=== PATIENT | male | born 1940 | race Caucasian/White ===

== ENCOUNTER 2018-08-08 07:35 | Emergency (ER) | payer OTHER, MEDICARE ==
[2018-08-08] MEDS ORDERED: HYTRIN1 MG PO (07:59)
[2018-08-08] MEDS ORDERED: DEPAKOTE125 MG PO (08:00)
[2018-08-08 08:21] LABS: BASOPHILS 0.6 % (0-2); EOSINOPHILS 3.3 % (0-7); HEMATOCRIT 42.4 % (42.0-54.0); HEMOGLOBIN 14.8 g/dL (13.5-17.5); IMMATURE GRANULOCYTES 0.6 % (0-5); LYMPHOCYTES 15.3 % (15-50); MCH 31.8 pg (26.0-34.0); MCHC 34.9 g/dL (31.0-37.0); MEAN PLATELET VOLUME 10.4 fL (7.4-10.4); MONOCYTES 5.9 % (2-11); NEUTROPHILS 74.3 % (40-80); PLATELET COUNT 197 10x3/uL (130-400); RBC 4.66 10x6/uL (4.20-6.10); RDW 13.5 % (11.5-14.5); WBC 5.4 10x3/uL (4.8-10.8)
[2018-08-08 08:23] LABS: APTT 24.8 SECONDS (22.8-39.4); INR 1.07 (0.85-1.17); PROTIME 13.4 SECONDS (11.6-15.0)
[2018-08-08 08:24] LABS: ALBUMIN 3.6 g/dL (3.4-5.0); ALKALINE PHOSPHATASE 91 U/L (46-116); ALT (SGPT) 27 U/L (10-68); BILIRUBIN - TOTAL 0.58 mg/dL (0.2-1.3); CALC OSMOLALITY 289 mosm/kg (275-300); CALCIUM 8.7 mg/dL (8.5-10.1); CHLORIDE - SERUM 107 mmol/L (98-107); GLUCOSE 148 mg/dL (74-106); POTASSIUM - SERUM 5.1 mmol/L (3.5-5.1); PROTEIN - SERUM 6.5 g/dL (6.4-8.2); SODIUM 142 mmol/L (136-145); UREA NITROGEN 23 mg/dL (7-18); eGFR NON AFRICAN AMERICAN 77 mL/min (90-120)
[2018-08-08 08:32] LABS: LIPASE 198 U/L (73-393); PRO BNP 94 pg/mL (0-450); TROPONIN-I < 0.017 ng/mL (0.000-0.060)
[2018-08-08 09:01] LABS: APPEARANCE CLEAR (CLEAR); BACTERIA FEW /hpf (NONE SEEN); BILIRUBIN NEGATIVE (NEGATIVE); COLOR YELLOW (YELLOW); EPITHELIAL CELLS OCC /hpf (0-5); GLUCOSE NEGATIVE (NEGATIVE); GRANULAR CAST RARE /lpf (NONE SEEN); KETONE NEGATIVE (NEGATIVE); MUCUS >1+ /lpf (NONE SEEN); NITRITE NEGATIVE (NEGATIVE); PROTEIN NEGATIVE (NEGATIVE); RED CELL CAST RARE /lpf (NONE SEEN); SPECIFIC GRAVITY 1.015 (1.005-1.020); UROBILINOGEN NORMAL (NORMAL); WHITE CELLS - URINE 0-5 /hpf (0-5)
[2018-08-08] MEDS ORDERED: COLACE100 MG PO (09:31)
[2018-08-08] MEDS ORDERED: ZOFRAN ODT4 MG/UDTAB PO (09:31)
[2018-08-08] MEDS ORDERED: TYLENOL W/CODEI1 TAB PO (10:37)
[2018-08-08 10:48] VITALS: BP 146/82
[2018-09-18] MEDS ORDERED: XALATAN 0.0052.5 ML EACH EYE (14:43)
[2018-09-18] MEDS ORDERED: DORZOLAMIDE-TI1 EACH EACH EYE (14:45)
[2018-11-09 07:26] VITALS: BMI 29.8
== END 2018-08-08 10:42 | disposition home or self-care (01) ==
LOC: D.ER 07:35
PROVIDERS: Family Medicine
DX: K59.00 Constipation, unspecified (principal); N20.1 Calculus of ureter

== ENCOUNTER → 2018-08-14 11:04 | Outpatient (CLI) | payer MEDICARE, OTHER ==
[~2018-08-14 11:04] MED LIST: COLACE100 MG PO; DEPAKOTE125 MG PO; HYTRIN1 MG PO; TYLENOL W/CODEI1 TAB PO; ZOFRAN ODT4 MG/UDTAB PO
== END | disposition home or self-care (01) ==
LOC: D.LAB 11:04
PROVIDERS: ATTEND Urology
DX: N40.0 Benign prostatic hyperplasia without lower urinary tract symptoms (principal)

== ENCOUNTER 2018-08-17 07:06 | Day surgery (SDC) | payer MEDICARE, OTHER ==
[2018-08-17 07:37] LABS: HEMATOCRIT 40.3 % (42.0-54.0); HEMOGLOBIN 14.3 g/dL (13.5-17.5); MCH 31.6 pg (26.0-34.0); MCHC 35.5 g/dL (31.0-37.0); RBC 4.53 10x6/uL (4.20-6.10); RDW 13.6 % (11.5-14.5); WBC 4.9 10x3/uL (4.8-10.8)
[2018-08-17 08:00] VITALS: BP 127/77; BMI 29.8
--- NOTE | 2018-08-17 13:33 | NUR ---
1330 VOIDS QS SLIGHTLY BLOODY URINE.
--- NOTE | 2018-08-17 13:59 | OP ---
PATIENT NAME: ADIEL SHEFFIELD MEDICAL RECORD: [id number] :42 LOCATION:D.OPS ADMISSION DATE: SURGEON: GM CHAUDHARI MD DATE OF OPERATION: 08/17/2018 SURGEON: Gm Chaudhari MD ANESTHESIA: TIVA by Isaias Laurent CRNA DIAGNOSES: 1. History of right ureteral stone. 2. Obstructive BPH. PROCEDURES: Cystoscopy and right retrograde pyelogram. FINDINGS: On cystoscopy, obstructive lateral lobes of the prostate with no median lobe. Heavily trabeculated bladder without bladder tumors. Single ureteral orifices bilaterally. Findings on retrograde pyelogram include no radiodense ureteral stone seen. On retrograde pyelogram, there were no filling defects. There was some hydronephrosis due to distal ureteral edema, which is possibly from a recently passed stone. SPECIMENS: None. BLOOD LOSS: None. CLINICAL HISTORY: This is a 77-year-old male who initially presented with right flank pain of one week's duration. He has severe pain as well as nausea and vomiting. He went to the Emergency Room, where a CT scan of abdomen and pelvis showed a right hydroureteronephrosis due to a mid ureteral 5 x 4 mm stone. The large prostate was also seen. He has quite significant voiding symptoms from his enlarged prostate. His PSA was found to be elevated at 4.17. There are plans for him to have transrectal ultrasound and prostate biopsy in the near future. However, we are going to treat his ureteral stone at this time. He has no allergies. He was given Ancef on-call to the OR. DESCRIPTION OF PROCEDURE: The patient was placed on the treatment table. Prior to giving him any anesthetic, we performed fluoroscopy. We could not identify any radiodense ureteral stone. Even starting from the renal pelvis and working all the way down to the bladder, we could only see a couple of possible phleboliths, but nothing more. It was decided to proceed with cystoscopy and right retrograde pyelogram. The patient was given TIVA. He was prepped and draped, and placed in lithotomy position. A 21-Bulgarian cystoscope with 30-degree lens was used for visualization. Findings on cystoscopy as outlined above. An open-ended ureteral catheter was placed into the right ureteral orifice and a retrograde pyelogram was obtained. No filling defects were seen at all. I watched the contrast evacuate out of the ureter via peristalsis. There was some edema right at the UV junction, possibly from a recently passed stone. At this point, we decided to abandon any further treatment. He already has an appointment made for transrectal ultrasound and prostate biopsy in the near future. He will keep that appointment. TRANSINT:[id number] Voice Confirmation ID: [id number] DOCUMENT ID: [id number] OPERATIVE REPORT [id number] ADIEL SHEFFIELD, GM Alatorre MD at 1359 CC: [id number] DICTATION DATE: 08/17/18 1317 FORECAST ANALYST: 08/17/18 1350 REG [facility] [address] [place] [address]
[2018-09-18] MEDS ORDERED: XALATAN 0.0052.5 ML EACH EYE (14:43)
[2018-09-18] MEDS ORDERED: DORZOLAMIDE-TI1 EACH EACH EYE (14:45)
== END 2018-08-17 14:20 | disposition home or self-care (01) ==
LOC: D.OPS 07:06 → D.PAN 10:00 → D.OPS 10:00
PROVIDERS: Anesthesiology; ATTEND Urology
DX: N40.1 Benign prostatic hyperplasia with lower urinary tract symptoms (principal); N13.8 Other obstructive and reflux uropathy; N32.89 Other specified disorders of bladder; N13.30 Unspecified hydronephrosis; Z01.812 Encounter for preprocedural laboratory examination

== ENCOUNTER 2018-09-19 05:55 | Day surgery (SDC) | payer MEDICARE, OTHER ==
[~2018-09-19] VITALS: Ht 172.7 cm; Wt 88.9 kg
[~2018-09-19 05:55] MED LIST changes: +DORZOLAMIDE-TI1 EACH EACH EYE; +XALATAN 0.0052.5 ML EACH EYE
[2018-09-19 06:30] LABS: HEMATOCRIT 39.7 % (42.0-54.0); HEMOGLOBIN 14.1 g/dL (13.5-17.5); MCH 31.4 pg (26.0-34.0); MCHC 35.5 g/dL (31.0-37.0); MCV 88.4 fL (80.0-100.0); MEAN PLATELET VOLUME 9.9 fL (7.4-10.4); RBC 4.49 10x6/uL (4.20-6.10); RDW 13.9 % (11.5-14.5); WBC 4.2 10x3/uL (4.8-10.8)
[2018-09-19] MEDS ORDERED: HYTRIN1 MG PO (07:08)
[2018-09-19 07:15] VITALS: BP 115/63; Ht 172.7 cm; Wt 88.9 kg
--- NOTE | 2018-09-19 10:32 | OP ---
PATIENT NAME: ADIEL SHEFFIELD MEDICAL RECORD: [id number] :42 LOCATION:D.OPS ADMISSION DATE: SURGEON: GM CHAUDHARI MD DATE OF OPERATION: 09/19/2018 SURGEON: Gm Chaudhari MD ANESTHESIA: TIVA by Ivan Rodriguez CRNA DIAGNOSIS: Elevated PSA of 4.17 on 08/14/2018. PROCEDURE: Transrectal ultrasound (TRUS) and prostate biopsy. FINDINGS: 119 gram prostate on TRUS. Some hypoechoic areas of the left base. SPECIMENS: Prostate biopsy cores. BLOOD LOSS: Minimal. CLINICAL HISTORY: This is a 77-year-old male, who was initially seen for kidney stones. He also has obstructive voiding symptoms. I performed cystoscopy on him and he has obstructive lateral lobes. He eventually passed his kidney stones. He has an IPSS score of 27 and quality of life score of 6, on terazosin. He has been on terazosin for many years. When we checked his PSA, it was elevated at 4.17. He comes today to have the prostate biopsy performed. If the prostate biopsy was benign, then he would like to have some form of definitive treatment of his BPH done. HE IS ALLERGIC TO BEE VENOM. He was given Ancef education paraprofessional to the OR. DESCRIPTION OF PROCEDURE: The patient was given IV sedation. He was then placed into dorsal lithotomy position. The transrectal ultrasound probe was introduced. Sextant biopsies were obtained with at least 3 cores from each sextant. Once all the cores were obtained, the procedure was terminated. I will see him in followup next week to review his pathology results with him. TRANSINT:[id number] Voice Confirmation ID: [id number] DOCUMENT ID: [id number] GM CHAUDHARI MD at 1032 CC: [id number] DICTATION DATE: 09/19/18 0941 ONSHORE DIVER: 09/19/18 1027 [address] [facility] [address] [place] [address]
--- NOTE | 2018-09-19 10:57 | NUR ---
1015 IV HAS BEEN DC'D WITH CATH INTACT. STATES DID VOID. STATES READY FOR RELEASE HOME DC INSTS GIVEN VOICED UNDERSTANDING. 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
== END 2018-09-19 10:15 | disposition home or self-care (01) ==
LOC: D.OPS 05:55 → D.PAN 10:45 → D.OPS 10:45 → D.PAN 11:00
PROVIDERS: Anesthesiology; ATTEND Urology
DX: N42.31 Prostatic intraepithelial neoplasia (principal); Z01.812 Encounter for preprocedural laboratory examination

== ENCOUNTER 2018-11-09 06:27 | Day surgery (SDC) | payer MEDICARE, OTHER ==
[2018-11-08 15:11] LABS: HEMOGLOBIN 13.1 g/dL (13.5-17.5); MCH 31.2 pg (26.0-34.0); MCHC 35.4 g/dL (31.0-37.0); MCV 88.1 fL (80.0-100.0); RBC 4.2 10x6/uL (4.20-6.10); RDW 13.5 % (11.5-14.5); WBC 3.9 10x3/uL (4.8-10.8)
[~2018-11-09] VITALS: Ht 172.7 cm; Wt 88.9 kg
[2018-11-09 07:26] VITALS: BP 116/72; Ht 172.7 cm; Wt 88.9 kg
--- NOTE | 2018-11-09 10:35 | NUR ---
PATIENT AMBULATING AROUND ROOM WITHOUT DIZZINESS OR UNSTEADINESS. PIV DC'D WITH TIP INTACT. PATIENT DRESSING IN PERSONAL CLOTHING 1040 DISCHARGE INSTRUCTIONS REVIEWED WITH PATIENT, DISCHARGED HOME VIA WHEELCHAIR TO PRIVATE VEHICLE WITH SPOUSE
--- NOTE | 2018-11-09 14:19 | OP ---
PATIENT NAME: ADIEL SHEFFIELD MEDICAL RECORD: [id number] :42 LOCATION:D.OPS ADMISSION DATE: SURGEON: GM CHAUDHARI MD DATE OF OPERATION: 11/09/2018 SURGEON: Gm Chaudhari MD ANESTHESIA: TIVA by Lien Thompson CRNA. DIAGNOSIS: Obstructive BPH with IPSS equals 27. Quality of life score is 6 on tamsulosin. PSA is 4.17. PROCEDURE: Transrectal ultrasound showed a prostate size of 119 grams. Prostate biopsy was benign. PROCEDURE: UroLift times 6. FINDINGS: Obstructive and very vascular prostatic lateral lobes. No median lobe. Single ureteral orifices bilaterally with a heavily trabeculated bladder and no bladder tumors. ESTIMATED BLOOD LOSS: Minimal. CLINICAL HISTORY: This is a 77-year-old male whom I initially saw when he had a kidney stone in the right ureter. This was removed ureteroscopically. At the time of ureteroscopy his obstructive BPH was noted. He has been on terazosin for many years and he gets dizzy from it. In spite of the medication, he has a very slow urinary flow, postvoid dribbling and he feels that he is not fully emptying his bladder. His IV access and quality of life scores are quite high. His PSA was elevated at 4.17. He had a prostate biopsy. A very large prostate was noted on the prostatic ultrasound. Prostate biopsy was benign. He comes today to have the UroLift procedure done. He is not allergic to any medications. He was given Ancef automation clerk to the OR. DESCRIPTION OF PROCEDURE: The patient was given IV sedation. He was then placed in locked lithotomy position and prepped and draped. UroLift scope was introduced. Findings are as outlined above. I started first at the bladder neck level, implants which were placed in the outer anterolateral sulcus of the lateral lobe. One unit was placed on each side at about 1.5 cm distal to the bladder neck. Placement of the unit immediately triggered a lot of venous bleeding. I had to put 2 more units in the anterolateral sulcus at the mid urethral level between the bladder neck and the verumontanum. Finally, at the level of verumontanum 2 more units were placed. Using the obturator, we could see a nice anterior urethral channel. There is still significant bleeding. I placed a Sensor wire through the scope sheath into the bladder. The scope sheath was then removed. Over the wire, we inserted a 16-Dominican mi'kmaq tip Ortiz catheter. Once this was fully in the bladder, the Ortiz balloon was inflated with 10 mL of sterile water. The Ortiz catheter was then put to bag drainage after removing the wire entirely. I will see the patient in followup next week for a voiding trial. TRANSINT:[id number] Voice Confirmation ID: [id number] DOCUMENT ID: [id number] OPERATIVE REPORT [id number] ADIEL SHEFFIELD ROBERT S MD at 1419 CC: [id number] DICTATION DATE: 11/09/18 0937 POLISHING WHEEL REPAIRER: 11/09/18 1242 REG [facility] [address] [place] [address]
== END 2018-11-09 10:40 | disposition home or self-care (01) ==
LOC: D.OPS 06:27 → D.PAN 08:40 → D.OPS 08:40
PROVIDERS: Anesthesiology; ATTEND Urology
DX: N40.1 Benign prostatic hyperplasia with lower urinary tract symptoms (principal); N13.8 Other obstructive and reflux uropathy; N32.89 Other specified disorders of bladder; Z01.812 Encounter for preprocedural laboratory examination